=== PATIENT | female | born 1965 | race Caucasian/White ===

== ENCOUNTER 2019-07-13 22:16 | Observation (INO) ==
[2019-07-13] MEDS ORDERED: Isovue-370 500 ML BOTTLE IVP ONE (22:53)
[2019-07-13 23:17] LABS: Basophils % 0.4 %; Eosinophils # 0.1 K/mcL (0.0-0.6); Eosinophils % 1.7 %; Hematocrit 40.9 % (35.3-44.9); Immature Granulocytes % 0.2 % (0-4); Lymphocytes # 1.8 K/mcL (0.6-4.6); Lymphocytes % 21.7 %; Mean Corpuscular HGB Conc 34.2 g/dL (31.6-35.5); Mean Corpuscular Hemoglobin 31.1 pg (28.0-33.3); Mean Corpuscular Volume 90.9 fL (83.0-100.0); Mean Platelet Volume 10.6 fL (9.4-12.4); Monocytes # 0.6 K/mcL (0.0-1.3); Monocytes % 7.2 %; Neutrophils # 5.6 K/mcL (1.6-8.9); Platelet Count 226 K/mcL (140-400); Red Cell Distribution Width 13.3 % (11.5-14.5); Segmented Neutrophils % 68.8 %; White Blood Count 8.2 K/mcL (4.3-11.1)
[2019-07-13 23:40] LABS: BUN/Creatinine Ratio 31 (6-26); Blood Urea Nitrogen 23 mg/dL (6-20); Calcium 8.9 mg/dL (8.6-10.3); Carbon Dioxide 23 mEq/L (23-29); Chloride 109 mEq/L (98-107); Glucose 91 mg/dL (70-105); Osmolality,Calculated 291 (280-300); Potassium 3.8 mEq/L (3.5-5.1); Sodium 139 mEq/L (136-145); eGFR For African Americans > 60 (> 60); eGFR For Non-African Americans > 60 (> 60)
[2019-07-13 23:41] LABS: Troponin I < 0.03 ng/mL (< 0.04)
[2019-07-14] MEDS ORDERED: Furosemide 40 MG/4 ML VIAL IVP ONE (00:58)
[2019-07-14] MEDS ORDERED: Naloxone 0.4 MG/ML INJ IVP PRN (06:32)
[2019-07-14 07:42] LABS: Hematocrit 40.2 % (35.3-44.9); Hemoglobin 13.5 g/dL (11.5-15.4); Mean Corpuscular HGB Conc 33.6 g/dL (31.6-35.5); Mean Corpuscular Hemoglobin 30.8 pg (28.0-33.3); Mean Corpuscular Volume 91.8 fL (83.0-100.0); Mean Platelet Volume 10.7 fL (9.4-12.4); Platelet Count 194 K/mcL (140-400); Red Blood Count 4.38 M/mcL (3.82-4.97); Red Cell Distribution Width 13.4 % (11.5-14.5); White Blood Count 7.3 K/mcL (4.3-11.1)
[2019-07-14 07:53] LABS: BUN/Creatinine Ratio 22 (6-26); Blood Urea Nitrogen 17 mg/dL (6-20); Calcium 8.7 mg/dL (8.6-10.3); Carbon Dioxide 29 mEq/L (23-29); Chloride 105 mEq/L (98-107); Glucose 91 mg/dL (70-105); Osmolality,Calculated 293 (280-300); Potassium 3.6 mEq/L (3.5-5.1); Sodium 141 mEq/L (136-145); eGFR For African Americans > 60 (> 60); eGFR For Non-African Americans > 60 (> 60)
[2019-07-14] MEDS: Furosemide 40 MG/4 ML VIAL IVP SCH (08:34)
[2019-07-14] MEDS ORDERED: Acetaminophen 325 MG TABLET PO PRN (10:16)
[2019-07-14] MEDS ORDERED: Acetaminophen 325 MG TABLET PO ONE (14:09)
[2019-07-14] MEDS: *HR* Heparin 5,000 UNIT/ML VIAL SQ SCH (17:59)
[2019-07-15] MEDS: *HR* Heparin 5,000 UNIT/ML VIAL SQ SCH ×2 (05:00→17:54)
[2019-07-15 07:43] LABS: BUN/Creatinine Ratio 31 (6-26); Blood Urea Nitrogen 29 mg/dL (6-20); Calcium 8.9 mg/dL (8.6-10.3); Carbon Dioxide 28 mEq/L (23-29); Chloride 106 mEq/L (98-107); Glucose 96 mg/dL (70-105); Osmolality,Calculated 296 (280-300); Potassium 3.8 mEq/L (3.5-5.1); Sodium 140 mEq/L (136-145); eGFR For African Americans > 60 (> 60); eGFR For Non-African Americans > 60 (> 60)
[2019-07-15] MEDS: Furosemide 40 MG/4 ML VIAL IVP SCH (09:10)
[2019-07-15] MEDS ORDERED: Nitroglycerin 1,000 MCG/10 ML VIAL IV ONE (16:15)
[2019-07-15] MEDS ORDERED: Heparin 1,000 UNITS/500 mL 500 ML ONE (16:15)
[2019-07-15] MEDS ORDERED: ISOVUE-370 200 ML INFUS..BTL ONE (16:15)
[2019-07-15] MEDS ORDERED: 0.9 % Sodium Chloride 1,000 ML ONE ×2 (16:15→16:20)
[2019-07-15] MEDS ORDERED: *HR* Heparin 10,000 UNIT/10 ML VIAL ONE (16:15)
[2019-07-15] MEDS ORDERED: *HR* FentaNYL (PF) 100 MCG/2 ML VIAL ONE (16:23)
[2019-07-15] MEDS ORDERED: *HR* Midazolam HCl 2 MG/2 ML VIAL ONE (16:23)
[2019-07-15 22:26] LABS: Amphetamine Screen,Urine Negative ng/mL (Cutoff=1000); Barbiturate Screen,Urine Negative ng/mL (Cutoff=200); Benzodiazepines Screen,Urine Positive ng/mL (Cutoff=200); Cannabinoid Screen,Urine Negative ng/mL (Cutoff = 50); Cocaine Screen,Urine Negative ng/mL (Cutoff= 300); Opiate Screen,Urine Negative ng/mL (Cutoff=300); Phencyclidine Screen,Urine Negative ng/mL (Cutoff=25)
[2019-07-16] MEDS: *HR* Heparin 5,000 UNIT/ML VIAL SQ SCH (05:44)
[2019-07-16 06:14] LABS: BUN/Creatinine Ratio 32 (6-26); Blood Urea Nitrogen 24 mg/dL (6-20); Carbon Dioxide 27 mEq/L (23-29); Chloride 107 mEq/L (98-107); Glucose 92 mg/dL (70-105); Osmolality,Calculated 296 (280-300); Sodium 141 mEq/L (136-145); eGFR For African Americans > 60 (> 60); eGFR For Non-African Americans > 60 (> 60)
[2019-07-16] MEDS: Furosemide 40 MG/4 ML VIAL IVP SCH (08:24)
[2019-07-16 11:36] VITALS: BP 116/73
[2019-07-17] MEDS ORDERED: Furosemide 40 MG TABLET PO SCH (09:00)
[2019-07-17] MEDS ORDERED: Metoprolol XL (24 HR) Succ 25 MG TAB.ER.24H PO SCH (09:00)
== END 2019-07-16 12:49 | disposition home or self-care (01) ==
LOC: 2ANU 22:16 → EMEROOARM 22:16 → SUATTDRO 07-14 01:36 → 2ANU 07-14 02:02
PROVIDERS: ADMIT Family Medicine; ATTEND Internal Medicine